=== PATIENT | female | born 1975 | race Caucasian/White ===

== ENCOUNTER 2016-10-30 17:38 | Emergency (ER) | payer MEDICAID ==
[~2016-10-30] VITALS: Wt 56.5 kg
[~2016-10-30 17:38] MED LIST: MULT-552 PO
[2016-10-30] MEDS ORDERED: NOL20 PO (22:57)
--- NOTE | 2016-10-30 23:09 | RADRPT ---
PROCEDURE: XR Chest. CLINICAL INDICATION: Chest pain TECHNIQUE: Single AP portable chest COMPARISON: 07/10/2015 FINDINGS: The cardiomediastinal silhouette is within normal limits. Stable right knee point catheter positions distal tip at the cavoatrial junction. .The lungs are clear though pleural effusion or focal conso lidation. No pneumothorax. The osseous structures and soft tissues are unremarkable. IMPRESSION: No evidence for active cardiopulmonary disease. RPTAT:AAJJ Physician Clarence Date Time Electronically viewed and signed by Physician Clarence on 10/30/2016 23:09 COREY/
[2016-10-30 23:30] LABS: CHLORIDE 102 mmol/L (97-110); INR 0.98; PARTIAL THROMBOPLASTIN TIME 26.5 Sec (25.0-35.0); SODIUM 143 mmol/L (135-144)
[2016-10-30 23:31] LABS: POTASSIUM 3.5 mmol/L (3.5-5.1)
[2016-10-30 23:33] LABS: ANION GAP 15 (8-16); CARBON DIOXIDE 30 mmol/L (21-31); CREATININE 0.66 mg/dl (0.44-1.00)
[2016-10-30 23:34] LABS: BLOOD UREA NITROGEN 14 mg/dl (7-20); CALCIUM 9.5 mg/dl (8.4-10.2); GLUCOSE 123 mg/dl (70-220)
[2016-10-30 23:38] LABS: BASOPHILS % 0.4 % (0.0-2.0); EOSINOPHILS # 0.4 10^3/ul (0.0-0.5); EOSINOPHILS % 5.3 % (0.0-7.0); HEMOGLOBIN 13.3 g/dl (12.0-16.0); LYMPHOCYTES # 1.8 10^3/ul (0.8-2.9); LYMPHOCYTES % 27.7 % (15.0-51.0); MEAN CORPUSCULAR HEMOGLOBIN 30.5 pg (29.0-33.0); MEAN CORPUSCULAR HGB CONC 35.1 g/dl (32.0-37.0); MEAN CORPUSCULAR VOLUME 87.1 fl (82.0-101.0); MEAN PLATELET VOLUME 9.2 fl (7.4-10.4); MONOCYTE # 0.4 10^3/ul (0.3-0.9); MONOCYTES % 5.6 % (0.0-11.0); NEUTROPHIL # 4.1 10^3/ul (1.6-7.5); PLATELET COUNT 231 10^3/UL (140-440); RED BLOOD COUNT 4.36 10^6/ul (4.20-5.40); RED CELL DISTRIBUTION WIDTH 12.6 % (11.5-14.5); UNCORRECTED WBC 6.7 10^3/ul (4.8-10.8); WHITE BLOOD COUNT 6.7 10^3/ul (4.8-10.8)
[2016-10-30 23:40] LABS: CONDITION 1
[2016-10-30 23:43] LABS: B-TYPE NATRIURETIC PEPTIDE 33 PG/ML (0-125)
[2016-10-30 23:49] LABS: TROPONIN-I < 0.012 ng/ml (0.00-0.12)
[2016-10-30] MEDS ORDERED: KETOROLAC 15 MG INJ IV ONE (23:53)
--- NOTE | 2016-10-31 00:11 | ERD ---
ER Documentation Chief Complaint Date/Time DATE: 10/31/16 TIME: 00:10 Chief Complaint CHEST PAIN X 8 DAYS HPI This is a 41-year-old female who presents to the emergency room for evaluation of chest pain for the past 10 days. The patient states that her pain is been constant, and the center of the chest, worse with deep inspiration and. The patient denies any palpitations or shortness of breath at this time. ROS All systems reviewed and are negative except as per history of present illness. Medications Home Meds Reported Medications Tamoxifen Citrate* (Tamoxifen Citrate*) 20 Mg Tab, 20 MG PO DAILY, TAB 10/30/16 Discontinued Reported Medications Multivitamins* (Once Daily*) 1 Tab Tablet, 1 TAB PO DAILY, TAB 03/13/15 Allergies Allergies: Coded Allergies: No Known Allergy (Unverified , 10/30/16) PMhx/Soc History of Surgery: Yes (left mastectomy) Anesthesia Reaction: No Hx Neurological Disorder: No Hx Respiratory Disorders: No Hx Cardiac Disorders: No Hx Psychiatric Problems: No Hx Miscellaneous Medical Probl: Yes (left breast ca 2014, was on chemo/ radiation) Hx Alcohol Use: No Hx Substance Use: No Hx Tobacco Use: No Smoking Status: Never smoker Physical Exam Vitals Vital Signs Date Time Temp Pulse Resp B/P Pulse Ox O2 Delivery O2 Flow Rate FiO2 10/30/16 22:47 Nasal Cannula 2 10/30/16 22:47 65 16 137/71 100 Room Air 2.0 Nasal Cannula 10/30/16 17:41 98.5 84 18 136/66 99 Physical Exam INITIAL VITAL SIGNS: Reviewed by me GENERAL: The patient is well developed and appropriate for usual state of health in no apparent distress HEENT: Pupils equal, round, and reactive to light. EOMI. There is no scleral icterus. NECK: C-spine is soft and supple, there is no meningismus. There is no cervical lymphadenopathy. LUNGS: Clear to auscultation bilaterally. There are no rales, wheezes or rhonchi. HEART: Regular rate and rhythm, no murmurs, clicks, rubs or gallops. ABDOMEN: Soft, non-tender, non-distended. There are bowel sounds in all four quadrants. No rebound or guarding. EXTREMITIES: There is no peripheral cyanosis or edema. No focal swelling or erythema. NEUROLOGICAL: The patient moves all four extremities with 5/5 strength. Cranial nerves II - XII are intact. Normal gait. Alert and oriented SKIN: There is no apparent rash or petechiae. Musculoskeletal: Tender to palpation of anterior chest wall, reproduces pain HEME/LYMPHATIC: There is no evidence of excessive bruising or lymphedema. PSYCHIATRIC: The patient does not appear anxious or depressed. Result Diagram: 10/30/16224910/30/162249 Results 24 hrs Laboratory Tests Test 10/30/16 22:50 Activated Partial Thromboplast Time 26.5Sec Anion Gap 15 B-Type Natriuretic Peptide 33PG/ML Basophils # 0.010^3/ul Basophils % 0.4% Blood Urea Nitrogen 14mg/dl Calcium Level 9.5mg/dl Carbon Dioxide Level 30mmol/L Chloride Level 102mmol/L Creatinine 0.66mg/dl Eosinophils # 0.410^3/ul Eosinophils % 5.3% Glucose Level 123mg/dl Hematocrit 38.0% Hemoglobin 13.3g/dl INR International Normalized Ratio 0.98 Lymphocytes # 1.810^3/ul Lymphocytes % 27.7% Mean Corpuscular Hemoglobin 30.5pg Mean Corpuscular Hemoglobin Concent 35.1g/dl Mean Corpuscular Volume 87.1fl Mean Platelet Volume 9.2fl Monocytes # 0.410^3/ul Monocytes % 5.6% Neutrophils # 4.110^3/ul Neutrophils % 61.0% Nucleated Red Blood Cells # 0.010^3/ul Nucleated Red Blood Cells % 0.0/100WBC Platelet Count 28782^3/UL Potassium Level 3.5mmol/L Prothrombin Time 13.0Sec Prothrombin Time Ratio 1.0 Red Blood Count 4.3610^6/ul Red Cell Distribution Width 12.6% Sodium Level 143mmol/L Troponin I < 0.012ng/ml White Blood Count 6.710^3/ul Current Medications Medications (Trade) Dose Ordered Sig/Maral Route PRN Reason Start Time Stop Time Status Last Admin Dose Admin Ketorolac Tromethamine (Toradol) 15 mg ONCE ONCE IV 10/30/16 23:53 10/30/16 23:54 DC 10/30/16 23:58 Procedures/MDM EKG: Rate/Rhythm: [Normal Sinus Rhythm] QRS, ST, T-waves: [No changes consistent w/ acute ischemia] Impression: [No evidence of ischemia or arrhythmia] Chest X-ray 1V Interpreted by me: Soft Tissue: No acute abnormalities Bones: No acute abnormalities Mediastinum/Cardiac Silhouette/Lungs: [No acute abnormalities] This 41-year-old female presents to the ER for evaluation of chest pain. The patient had chest pain for the past approximately 10 days which is been constant. Her pain is reproducible with palpation of the anterior chest wall and with a deep inspiration. First troponin is nonischemic, EKG is normal, chest x-ray normal. This patient is not hypoxic, not tachycardic, my suspicion for PE is low. This patient states she is feeling better with 30 mg of Toradol IV. The patient will be discharged home at this time with a prescription for Motrin and instructions to follow-up with her primary care physician to schedule outpatient stress test. Differential diagnoses entertained was broad with potential high acuity. Patient has been evaluated for acute myocardial infarction, unstable angina, aortic dissection, pulmonary embolism, other intrathoracic and cardiac concerns. Ultimately the patient's evaluation is nondiagnostic. Based on the patient's lack of risk factors, as well as the patient's clinical, laboratory, and imaging data, the patient appears to be low risk for these high risk causes of chest pain. Departure Diagnosis: Primary Impression: Chest pain Condition: Stable CINTHYAMASON SUMMERSJOHN ALANIZ Oct 31, 2016 00:11
[2016-10-31 00:13] VITALS: BP 118/73; PULSE 63; RESP 16
[2016-10-31] MEDS ORDERED: IBUP800T25 PO (00:14)
== END 2016-10-31 00:16 | disposition home or self-care (01) ==
LOC: E/R 17:38
DX: R07.89 Other chest pain (principal); R40.2142 Coma scale, eyes open, spontaneous, at arrival to emergency department; R40.2252 Coma scale, best verbal response, oriented, at arrival to emergency department; R40.2362 Coma scale, best motor response, obeys commands, at arrival to emergency department; Z85.3 Personal history of malignant neoplasm of breast
CPT/HCPCS: 36415; 71010; 80048; 83880; 84484; 85025; 85610; 85730; 96374; J1885; Z7502; 93005

== ENCOUNTER 2016-11-06 07:49 | Day surgery (SDC) | payer MEDICAID ==
[2016-11-06] VITALS (16 sets, daily range): BP systolic 87–123; BP diastolic 49–74; PULSE 62–84; RESP 16–18; Ht 167.6 cm; Wt 58.0 kg
[~2016-11-06] VITALS: Ht 167.6 cm; Wt 58.0 kg
[~2016-11-06 07:49] MED LIST changes: +IBUP800T25 PO; -MULT-552 PO; +NOL20 PO
[2016-11-06] MEDS ORDERED: PROPOFOL 20 ML ONE (10:07)
[2016-11-06] MEDS ORDERED: LIDOCAINE 2% (SDV) 5 ML INJ ONE (10:07)
[2016-11-06] MEDS ORDERED: MIDAZOLAM 1 MG/ML 2 ML INJ ONE (10:07)
[2016-11-06] MEDS ORDERED: FENTAnyl 50 MCG/ML VIAL ONE (10:28)
[2016-11-06] MEDS ORDERED: CEFAZOLIN 1 GM INJ ONE (10:29)
[2016-11-06] MEDS ORDERED: BUPIVACAINE 0.5%/EPI (SDV) 30 ML INJ INJ ONE (10:53)
[2016-11-06] MEDS ORDERED: PHENYLephrine (100 MCG/ML) 5ML SYG ONE (10:56)
[2016-11-06] MEDS ORDERED: FENTAnyl 50 MCG/ML VIAL IV PRN (11:00)
[2016-11-06] MEDS ORDERED: ONDANSETRON 4 MG INJ IV PRN (11:00)
[2016-11-06] MEDS ORDERED: HYDROmorphONE (0.2 MG/ML) 10ML SYG IV PRN (11:00)
[2016-11-06] MEDS ORDERED: PROCHLORPERAZINE 10 MG INJ IV PRN (11:00)
[2016-11-06] MEDS ORDERED: MEPERIDINE 25 MG INJ IV PRN (11:00)
[2016-11-06] MEDS ORDERED: DIPHENHYDRAMINE 50 MG INJ IV PRN (11:00)
[2016-11-06] MEDS ORDERED: OXYCODONE/ACETAMINOPHEN (5/325) TAB PO PRN (11:00)
--- NOTE | 2016-11-06 14:05 | OPR ---
DATE OF OPERATION: 11/06/2016 PREOPERATIVE DIAGNOSIS: History of breast cancer, need for chemotherapy port removal. POSTOPERATIVE DIAGNOSIS: History of breast cancer, need for chemotherapy port removal. OPERATION PERFORMED: Removal of chemo port right subclavian location. ANESTHESIA: IV sedation with local anesthetic. ANESTHESIOLOGIST: Dr. Licona. SURGEON: Bart Russell MD CASE SEALER: Dr. Motley. INDICATIONS FOR PROCEDURE: The patient is a 41-year-old female who I previously treated for a left breast cancer. She successfully completed her treatment and is ready to have her port removed. She consented and was scheduled for surgery. DESCRIPTION OF PROCEDURE: The patient was brought to the operating theater, placed under IV sedatio n. The right anterior thorax was prepped and draped in usual sterile fashion. The patient was then placed in the Trendelenburg position. The area around the port was then infiltrated with 0.5% Matheus nael local anesthetic with epinephrine. The previous surgical incisional scar was incised with 15 b lade scalpel. Subcutaneous tissue was dissected with cautery down to the pseudocapsule surrounding the port. The capsule was incised. The port was then elevated and gently removed while pressure wa s held in an infraclavicular location. The port appeared grossly intact, but it was sent to patholo gy to confirm that it was intact. The wound was then irrigated. Minimal bleeding was controlled wi th cautery. The skin was reapproximated with 5-0 PDS suture in subcuticular fashion, and benzoin an d Steri-Strips were applied. Patient tolerated the procedure well. The estimated blood loss was 5 mL. There were no complications and the patient was transported in stable condition to the recovery room. Dictated By: BART SINCLAIR/OMKAR Conf#: [id number] DID#: [id number]
== END 2016-11-06 13:11 | disposition home or self-care (01) ==
LOC: SDS 07:49
PROVIDERS: ATTEND Surgery Surgical Oncology
DX: Z45.2 Encounter for adjustment and management of vascular access device (principal); Z85.3 Personal history of malignant neoplasm of breast
CPT/HCPCS: 36590; 84703; 88300; J0690; J2250; J2370; J3010; Z7512; Z7610